=== PATIENT | male | born 1960 | race Two or more races ===

== ENCOUNTER 2022-01-31 08:45 | Inpatient (IN) | payer OTHER ==
[~2022-01-31] VITALS: Ht 167.6 cm; Wt 81.6 kg
[2022-01-31] MEDS ORDERED: SIMVASTATIN (10:58)
[2022-01-31] MEDS ORDERED: LOSARTAN POTASS50 MG (10:58)
[2022-02-05] MEDS ORDERED: SIMVASTATIN20 MG (14:44)
[2022-02-08] MEDS ORDERED: PERCOCET 5-3251 EACH PO (18:16)
[2022-02-08] MEDS ORDERED: TAMS0.4C PO (18:17)
== END 2022-02-08 22:38 | disposition home or self-care (01) | DRG 330 ==
LOC: EDSTATUS 08:45 → ADM 08:45 → SURH 02-05 07:00 → O/R 02-05 07:35 → SURH 02-05 08:45
PROVIDERS: ADMIT Colon & Rectal Surgery; ATTEND Colon & Rectal Surgery
PROC: 0TQB4ZZ Repair Bladder, Percutaneous Endoscopic Approach (ICD-10-PCS; 2022-02-05)
PROC: 0DBP4ZZ Excision of Rectum, Percutaneous Endoscopic Approach (ICD-10-PCS; 2022-02-05)
PROC: 0DJD8ZZ Inspection of Lower Intestinal Tract, Via Natural or Artificial Opening Endoscopic (ICD-10-PCS; 2022-02-05)
PROC: 0DTN4ZZ Resection of Sigmoid Colon, Percutaneous Endoscopic Approach (ICD-10-PCS; principal; 2022-02-05 07:00)
PROC: 4A12X4Z Monitoring of Cardiac Electrical Activity, External Approach (ICD-10-PCS; 2022-02-06)
DX: K57.20 Diverticulitis of large intestine with perforation and abscess without bleeding (principal); N32.1 Vesicointestinal fistula; Z20.822 Contact with and (suspected) exposure to COVID-19; I11.9 Hypertensive heart disease without heart failure; E78.5 Hyperlipidemia, unspecified